=== PATIENT | female | born 2000 | race Caucasian/White ===

== ENCOUNTER 2023-01-29 03:15 | Emergency (ER) | payer OTHER ==
[~2023-01-29] VITALS: Ht 152.4 cm; Wt 61.7 kg
--- NOTE | 2023-01-29 03:15 | NUR ---
PT BIB [facility], PREBOOK. TAKEN TO ER CHAIR
[2023-01-29 03:32] VITALS: BP 117/84
[2023-01-29 03:39] VITALS: BP 117/84
--- NOTE | 2023-01-29 03:39 | NUR ---
Dr. Alas examining patient.
--- NOTE | 2023-01-29 03:48 | NUR ---
Patient discharged with v/s stable. Written and verbal after care instructions given and explained. Patient verbalized understanding. Ambulatory with in custody. All questions addressed prior to discharge. Advised to follow up with PMD.
== END 2023-01-29 03:48 ==
LOC: MED 03:15
DX: Z04.1 Encounter for examination and observation following transport accident (principal); Z98.890 Other specified postprocedural states; V89.2XXA Person injured in unspecified motor-vehicle accident, traffic, initial encounter; Y93.89 Activity, other specified; Y92.410 Unspecified street and highway as the place of occurrence of the external cause; Y99.8 Other external cause status
CPT/HCPCS: 99283